=== PATIENT | male | born 1960 | race Caucasian/White ===

== ENCOUNTER → 2019-05-20 07:35 | Outpatient (CLI) | payer MEDICARE | END | disposition home or self-care (01) | LOC: D.MRI 07:35 | PROVIDERS: ATTEND Nurse Practitioner Family | DX: R22.42 Localized swelling, mass and lump, left lower limb (principal) ==

== ENCOUNTER 2019-07-05 05:55 | Day surgery (SDC) | payer MEDICARE ==
[2019-07-02 11:32] LABS: HEMOGLOBIN 15.2 g/dL (13.5-17.5); MCH 29.7 pg (26.0-34.0); MCHC 35.3 g/dL (31.0-37.0); MEAN PLATELET VOLUME 9.8 fL (7.4-10.4); RBC 5.12 10x6/uL (4.20-6.10); RDW 12.3 % (11.5-14.5); WBC 5.5 10x3/uL (4.8-10.8)
[2019-07-02 11:45] LABS: CALC OSMOLALITY 284 mosm/kg (275-300); CALCIUM 9.3 mg/dL (8.5-10.1); CHLORIDE - SERUM 102 mmol/L (98-107); CREATININE - SERUM 0.9 mg/dL (0.6-1.3); GLUCOSE 211 mg/dL (74-106); POTASSIUM - SERUM 4.1 mmol/L (3.5-5.1); SODIUM 139 mmol/L (136-145); UREA NITROGEN 15 mg/dL (7-18); eGFR NON AFRICAN AMERICAN > 90 mL/min (90-120)
[~2019-07-05] VITALS: Ht 180.3 cm; Wt 102.1 kg
[~2019-07-05 05:55] MED LIST: CRESTOR20 MG PO; GLUCOPHAGE500 MG PO; IBUPROFEN200 MG PO
[2019-07-05 06:36] VITALS: BP 132/89; Ht 180.3 cm; Wt 102.1 kg
[2019-07-05] MEDS ORDERED: PERCOCET 5-3251 TAB PO (09:22)
--- NOTE | 2019-07-05 11:14 | NUR ---
0935-REC'D FROM RR. AWAKE AND ALERT WITHOUT COMPLAINTS. VSS.DRESSING TO LEFT LEG CDI. IV PATENT TO LEFT HAND. AT BEDSIDE,CL IN EASY REACH.
--- NOTE | 2019-07-05 11:15 | NUR ---
1005-FULL LIQUID TRAY TO ROOM.VSS.DENIES COMPLAINTS.
--- NOTE | 2019-07-05 11:16 | NUR ---
1040-DISCHARGE CRITERIA MET.REMOVED IV FROM RIGHT HAND WITH CATH INTACT,DISPOSED INTO SHARPS CONTAINER,COVERED SITE WITH BANDAID. VSS.DENIES COMPLAINTS. DRESSING TO LEFT LEG CDI. REVIEWED POST OPERATIVE/DISCHARGE INSTRUCTIONS WITH PT AND SPOUSE.VERBALIZED UNDERSTANDING WITHOUT QUESTIONS OR CONCERNS.ESCORTED OUT VIA W/C WITH SPOUSE DRIVING HOME.
--- NOTE | 2019-07-05 11:44 | OP ---
PATIENT NAME: GOPI BLACK MEDICAL RECORD: [id number] :58 LOCATION:D.OPS ADMISSION DATE: SURGEON: GOPI RALPH DO DATE OF OPERATION: 07/05/2019 PROCEDURE PERFORMED: Excision of mass on the left anterior knee. PREOPERATIVE DIAGNOSIS: Mass, left knee. POSTOPERATIVE DIAGNOSIS: Mass, left knee. INDICATIONS: Mr. Black is a 58-year-old male, who has had a mass on the anterior left knee for quite some time, years in fact. It has not really affected him, although whenever he goes to knee, it does hurt him. It has not really gotten larger so to speak. I got an MRI, which showed a possible lipoma versus a hematoma. It was right in the infrapatellar bursa area. The patient was tired of dealing with it and it was affecting his activities of daily living. He wanted it excised. I informed him I would do that. He is at risk for recurrence, bleeding, damage to nerves and vessels in the area, numbness in the anterior knee, and need for further surgery as well as infection and bleeding, blood clots, and even . He is okay with that and signed the consent. SURGEON: Gopi Ralph DO DESCRIPTION OF PROCEDURE: The patient was taken to the operative suite, laid in supine position, given 2 grams of Ancef preoperatively. Left lower extremity was prepped and draped in sterile fashion. Time-out was performed. Everyone was in agreement with the correct side, site, patient, and procedure. The left lower extremity was then exsanguinated with an Esmarch. Tourniquet was inflated to 350 mmHg and was let down following the procedure. The tourniquet was up for approximately 20 minutes. The incision then began right over the mass just inferior to the patella on the anterior knee and a careful dissection was made down to the mass. The mass was then excised using a pickup and scissors to loosen it up. It was well encapsulated. It was removed and seen to be 4 x 4 cm and then about 2-3 cm in depth, well encapsulated. This was removed. The tourniquet was let down. Any bleeding was coagulated with the pickup and Bovie, and then the site was injected with 20 mL of 0.5% Marcaine with epinephrine. There was a small hole in the capsule of the knee and this was closed with a [id number] of #1 Vicryl, then the skin was closed with 2-0 Vicryl in an inverted interrupted fashion and a ZipLine was placed on the knee. Adaptic, 4 x 4s, ABD, Webril, Oswaldo wrap, TRAY hose stocking were then placed on the knee. The patient was awakened and taken to recovery in stable condition. BLOOD LOSS: Minimal. COMPLICATIONS: None. TRANSINT:[id number] Voice Confirmation ID: [id number] DOCUMENT ID: [id number] OPERATIVE REPORT [id number] GOPI BLCAK MICHAEL D, DO at 1144 CC: [id number] DICTATION DATE: 07/05/19919 VAT SKIMMER: 07/05/19 1115 [facility] [place] 07/05/[address] [id number]
== END 2019-07-05 10:40 | disposition home or self-care (01) ==
LOC: D.OPS 05:55 → D.PAN 08:00 → D.OPS 08:00 → D.PAN 08:45 → D.OPS 09:00
PROVIDERS: Anesthesiology; ATTEND Orthopaedic Surgery
DX: R22.42 Localized swelling, mass and lump, left lower limb (principal)